=== PATIENT | female | born 1955 ===

== ENCOUNTER 2016-09-23 19:58 | Emergency (ER) | payer SELFPAY ==
[2016-09-23 20:04] VITALS: BP 139/69; PULSE 77; RESP 16; TEMP 97.9; O2SAT 100
[2016-09-23] MEDS ORDERED: Naproxen 500 MG TAB PO STA (20:49)
--- NOTE | 2016-09-23 21:00 | ED PDOC ---
HPI: General Adult Time Seen by Provider: 09/23/16 20:33 Chief Complaint (Nursing): Upper Extremity Problem/Injury Chief Complaint (Provider): Right flank pain for a few days, rash yesterday History Per: Patient History/Exam Limitations: no limitations Onset/Duration Of Symptoms: Days Have you had recent travel within the past 21 days to any of the following countries: [place], [place], [place] or [place]?: No Current Symptoms Are (Timing): Still Present Severity: Moderate Pain Scale Rating Of: 6 Location Of Discomfort (Image): 1 - Pain, rash Similar Symptoms Previously: No Additional Complaint(s): PT states she fell a few weeks ago but did not have the pain right after the fall. Denies SOB, chest pain, weakness or fever Past Medical History Reviewed: Historical Data, Nursing Documentation, Vital Signs Vital Signs: Last Vital Signs Temp 97.9 F 09/23/16 20:01 Pulse 77 09/23/16 20:01 Resp 16 09/23/16 20:01 BP 139/69 09/23/16 20:01 Pulse Ox 100 09/23/16 20:01 - Medical History PMH: No Chronic Diseases - Surgical History Surgical History: No Surg Hx - Family History Family History: States: No Known Family Hx - Living Arrangements Living Arrangements: With Family - Social History Current smoker - smoking cessation education provided: No Alcohol: None Drugs: Denies - Home Medications Home Medications: Ambulatory Orders Medication Instructions Recorded Gabapentin [Neurontin] 300 mg PO TID #30 cap 09/23/16 valACYclovir [Valtrex] 1 gm PO Q8H #21 tab 09/23/16 - Allergies Allergies/Adverse Reactions: Allergies Allergy/AdvReac Type Severity Reaction Status Date / Time No Known Allergies Allergy Verified 09/23/16 20:01 Review of Systems ROS Statement: Except As Marked, All Systems Reviewed And Found Negative Constitutional: Negative for: Fever, Chills Cardiovascular: Negative for: Chest Pain Respiratory: Negative for: Shortness of Breath Musculoskeletal: Positive for: Other (Back/flank pain) Skin: Positive for: Rash Physical Exam - Reviewed Nursing Documentation Reviewed: Yes Vital Signs Reviewed: Yes - Physical Exam Appears: Positive for: Well, Non-toxic, No Acute Distress Head Exam: Positive for: ATRAUMATIC, NORMAL INSPECTION, NORMOCEPHALIC Skin: Positive for: Warm, Rash (Vesicular erythematous rash, right T5-T6 dermatome). Negative for: Normal Color Eye Exam: Positive for: Normal appearance ENT: Positive for: Normal ENT Inspection Neck: Positive for: Normal, Painless ROM Cardiovascular/Chest: Positive for: Regular Rate, Rhythm Respiratory: Positive for: Normal Breath Sounds. Negative for: Accessory Muscle Use, Respiratory Distress Back: Positive for: Normal Inspection Extremity: Positive for: Normal ROM. Negative for: Tenderness Neurologic/Psych: Positive for: Alert, Oriented - ECG O2 Sat by Pulse Oximetry: 100 Pulse Ox Interpretation: Normal Disposition - Clinical Impression Clinical Impression: Shingles - Patient ED Disposition Is Patient to be Admitted: No Counseled Patient/Family Regarding: Diagnosis, Need For Followup, Rx Given - Disposition Disposition: Routine/Home Disposition Time: 20:58 Condition: GOOD Prescriptions: Gabapentin [Neurontin] 300 mg PO TID #30 cap valACYclovir [Valtrex] 1 gm PO Q8H #21 tab Instructions: Jossy (ED) Print Language: YORUBA
[2016-09-23] MEDS ORDERED: Naproxen 500 MG TAB PO ONE (21:07)
== END 2016-09-23 21:15 | disposition home or self-care (01) ==
LOC: H.ER 19:58
DX: B02.9 Zoster without complications (principal)

== ENCOUNTER 2016-10-17 20:12 | Emergency (ER) | payer OTHER ==
[2016-10-17 20:42] VITALS: BP 131/71; PULSE 71; RESP 20; TEMP 98.2; O2SAT 100
[2016-10-17 22:05] LABS: BASO % 0.4 % (0.0-2.0); EOS # 0.1 K/uL (0.0-0.7); EOS % 2.2 % (0.0-4.0); HEMATOCRIT 41.7 % (34.0-47.0); LYMPH # 2.2 K/uL (1.0-4.3); LYMPH % 33.5 % (20.0-40.0); MEAN CELL VOLUME 90.4 fl (81.0-99.0); MEAN CORPUSCULAR HEMOGLOBIN 30.7 pg (27.0-31.0); MEAN PLATELET VOLUME 9.2 fl (7.2-11.7); MONO # 0.7 K/uL (0.0-0.8); MONO % 10.6 % (0.0-10.0); NEUT # 3.6 K/uL (1.8-7.0); NEUT % 53.3 % (50.0-75.0); NRBC % 0.8 % (0.0-0.0); RED CELL DISTRIBUTION WIDTH 13.1 % (11.5-14.5); WHITE BLOOD COUNT 6.7 K/uL (4.8-10.8)
[2016-10-17 22:10] LABS: ALB/GLOB RATIO 1.4 (1.0-2.1); ALKALINE PHOSPHATASE 92 U/L (38-126); ALT/SGPT 34 U/L (9-52); AST/SGOT 28 U/L (14-36); BILIRUBIN,TOTAL 0.9 mg/dl (0.2-1.3); BLOOD UREA NITROGEN 18 mg/dl (7-17); CALCIUM 9.7 mg/dL (8.4-10.2); CARBON DIOXIDE 25 mmol/L (22-30); CHLORIDE 104 mmol/L (98-107); GFR AFRICAN-AMERICAN > 60; GLUCOSE,RANDOM 134 mg/dL (65-105); MAGNESIUM 1.9 MG/DL (1.6-2.3); POTASSIUM 4.5 MMOL/L (3.6-5.0); SODIUM 139 mmol/l (132-148); TOTAL PROTEIN 7.6 G/DL (6.3-8.2)
--- NOTE | 2016-10-17 22:36 | ED PDOC ---
HPI: Neurologic - General Time Seen by Provider: 10/17/16 20:45 Chief Complaint (Nursing): Abdominal Pain Chief Complaint (Provider): Weakness and back pain Source: patient Exam Limitations: no limitations - History of Present Illness Timing/Duration: other (x 2 weeks) Allergies/Adverse Reactions: Allergies No Known Allergies Allergy (Verified 09/23/16 20:01) Home Medications: Ambulatory Orders Gabapentin [Neurontin] 300 mg PO TID #30 cap 09/23/16 valACYclovir [Valtrex] 1 gm PO Q8H #21 tab 09/23/16 Ibuprofen [Motrin Tab] 600 mg PO Q8 PRN #60 tab 10/17/16 Polyethylene Glycol 3350 [Miralax] 17 gm PO DAILY PRN #1 bottle 10/17/16 traMADol [Ultram] 50 mg PO TID PRN #15 tab 10/17/16 Additional Complaint(s): Alicia is a 60 y/o female who presents to the ED complaining of weakness, ongoing for 2 weeks and worsening since onset. Associated with right back pain radiating to the right anterior shoulder and chest. 4 weeks ago she was diagnosed with shingles and completed medications for this. Rash of shingles is located at the right upper back, and that has resolved but the pain persists and seems to be getting worse. No fever or shortness of breath. She reports frequency but no dysuria. States she is drinking a lot of water. PMD: None Past Medical History Reviewed: Historical Data, Nursing Documentation, Vital Signs Vital Signs: Last Vital Signs Temp 98.2 F 10/17/16 20:39 Pulse 71 10/17/16 20:39 Resp 20 10/17/16 20:39 BP 131/71 10/17/16 20:39 Pulse Ox 100 10/17/16 20:39 - Medical History PMH: No Chronic Diseases - Surgical History Surgical History: Appendectomy - Family History Family History: States: No Known Family Hx - Social History Current smoker - smoking cessation education provided: No Alcohol: None - Home Medications Home Medications: Ambulatory Orders Medication Instructions Recorded Gabapentin [Neurontin] 300 mg PO TID #30 cap 09/23/16 valACYclovir [Valtrex] 1 gm PO Q8H #21 tab 09/23/16 Ibuprofen [Motrin Tab] 600 mg PO Q8 PRN #60 tab 10/17/16 Polyethylene Glycol 3350 [Miralax] 17 gm PO DAILY PRN #1 bottle 10/17/16 traMADol [Ultram] 50 mg PO TID PRN #15 tab 10/17/16 - Allergies Allergies/Adverse Reactions: Allergies Allergy/AdvReac Type Severity Reaction Status Date / Time No Known Allergies Allergy Verified 09/23/16 20:01 Review of Systems ROS Statement: Except As Marked, All Systems Reviewed And Found Negative (as per HPI) Constitutional: Negative for: Fever Respiratory: Negative for: Shortness of Breath Genitourinary Female: Positive for: Frequency. Negative for: Dysuria Musculoskeletal: Positive for: Back Pain (right back pain radiating to the right anterior shoulder and chest) Neurological: Positive for: Weakness Physical Exam - Reviewed Nursing Documentation Reviewed: Yes Vital Signs Reviewed: Yes - Physical Exam Appears: Positive for: Well, No Acute Distress Head Exam: Positive for: ATRAUMATIC, NORMOCEPHALIC Skin: Positive for: Warm, Dry, Rash (flat dark brown pigmentation on RIGHT mid back in a band consitent with a dermatome, appears like healed zoster rash.) Eye Exam: Positive for: EOMI, PERRL ENT: Negative for: Pharyngeal Erythema, Tonsillar Exudate Neck: Positive for: Painless ROM, Supple Cardiovascular/Chest: Positive for: Regular Rate, Rhythm, Other (Tenderness to palpation RIGHT upper chest wall). Negative for: Murmur Respiratory: Positive for: Normal Breath Sounds. Negative for: Respiratory Distress Gastrointestinal/Abdominal: Positive for: Soft. Negative for: Tenderness, Mass , Distended, Guarding Back: Positive for: Normal Inspection. Negative for: Decreased ROM Extremity: Positive for: Normal ROM. Negative for: Deformity Lymphatic: Negative for: Adenopathy Neurologic/Psych: Positive for: Alert. Negative for: Motor/Sensory Deficits - Laboratory Results Result Diagrams: 10/17/16 21:25 10/17/16 21:25 - ECG O2 Sat by Pulse Oximetry: 100 (RA) Pulse Ox Interpretation: Normal Medical Decision Making Medical Decision Making: Initial Impression: Back pain and weakness Differentials include but are not limited to: dehydration, electrolyte abnormality, viral syndrome, postherpetic neuralgia. Time: 21:04 Initial Plan: --Labs ordered --Pending X-Ray Abdomen w/ Chest --Started on IV fluids Time: 22:10 --Toradol 15 mg IV --Tylenol 975 mg PO No emergently significant lab abnormalities Abdomen/chest xray demonstrates stool. NSBGP. No dilated bowel Scribe Attestation: Documented by Madeleine Colunga, acting as a scribe for Imani Joy MD Provider Scribe Attestation: All medical record entries made by the Scribe were at my direction and personally dictated by me. I have reviewed the chart and agree that the record accurately reflects my personal performance of the history, physical exam, medical decision making, and the department course for this patient. I have also personally directed, reviewed, and agree with the discharge instructions and disposition. Disposition - Clinical Impression Clinical Impression: Post herpetic neuralgia, Constipation Counseled Patient/Family Regarding: Studies Performed, Diagnosis, Need For Followup, Rx Given - Disposition Referrals: [facility] [Outside] [facility] [Outside] - 10/19/16 ([facility] TOOTIE DIONICIO POR ESTA SEMANA) Disposition: Routine/Home Disposition Time: 22:30 Condition: GOOD Additional Instructions: Neuralgia postherptica Por el personal de [facility] La neuralgia postherptica ([id number] no[facility] es tootie complicacin del herpes zoster, causada por el virus de la varicela (herpes zoster). La neuralgia postherptica afecta las fibras nerviosas y la piel, causando dolor ardiente que dura mucho tiempo despus de la erupcin y las ampollas de las culebrillas desaparecen. El riesgo de neuralgia postherptica aumenta con la edad, afectando principalmente a personas mayores de 60 aos. No hay adilene, jose los tratamientos pueden aliviar los sntomas. Para la mayora de las personas, la neuralgia postherptica mejora con el tiempo. Los signos y sntomas de la neuralgia postherptica se limitan generalmente al brittney de merida piel donde el estallido de la culebrilla ocurri flora - lo ms com nmente posible en tootie venda alrededor de merida tronco, generalmente en un lado de merida cuerpo. Sin embargo, la neuralgia postherptica tambin es comn en personas cuyas herpes zster se produjeron en la linda. Los signos y sntomas pueden incluir: Dolor que dura 3 meses o ms despus de que la erupcin cutnea se haya curado. El dolor asociado se alberts descrito roberto ardor, mario y jabbing, o profundo y dolor. Sensibilidad al tacto ligero. Las personas con la condicin a menudo no pueden soportar incluso el toque de ropa en la piel afectada (alodinia). Prurito y entumecimiento. Menos comnmente, la neuralgia posherptica puede producir sensacin de picazn o entumecimiento. Cundo consultar a un mdico Consulte a un mdico al primer signo de herpes zster. A menudo, el dolor comienza antes de notar tootie erupcin. El riesgo de desarrollar neuralgia postherptica disminuye si empieza a sheyla medicamentos antivirales dentro de las 72 horas posteriores al desarrollo de la erupcin cutnea. Tootie vez que usted alberts tenido varicela, el virus permanece en merida cuerpo para el yahir de merida rupa. A medida que envejece o si merida sistema inmunolgico se suprime , roberto los medicamentos o la quimioterapia, el virus puede reactivarse, causando herpes zster. La neuralgia postherptica ocurre si las fibras nerviosas se daan ilsa un brote de herpes. Las fibras daadas no pueden enviar mensajes de merida piel a merida cerebro roberto lo hacen normalmente. En merida lugar, los mensajes se vuelven confusos y exagerados, causando dolor crnico, a menudo insoportable que puede durar meses - o incluso aos. Cuando usted tiene herpes zster, usted podra estar en mayor riesgo de desarrollar neuralgia postherptica roberto resultado de: Aos. Tienes ms de 50 aos. Severidad de las ripias. Usted tuvo un sarpullido andrews y dolor andrews. Otras enfermedades. Usted tiene tootie enfermedad crnica, roberto la diabetes. Usted chuy herpes en merida linda o torso. Dependiendo de cunto dure la neuralgia postherptica y de lo doloroso que es, las personas con la condicin pueden desarrollar: Depresin Fatiga Dificultad para dormir Falta de apetito Dificultad para concentrarse Puede empezar por gale a merida mdico de cabecera. l o jeny puede referir a un especialista en nervios (neurlogo) o un mdico que se especializa en el tratamiento del dolor crnico. Aqu hay informacin que le ayudar a prepararse para merida dionicio. Lo que puedes hacer Cuando matthieu la dionicio, pregunte si hay algo que necesita hacer por adelantado, roberto ayuno antes de tootie prueba especfica. Haz tootie lista de: Love sntomas, incluyendo cualquiera que parezca no relacionado con el motivo de merida dionicio Informacin personal clave, incluyendo estrs importante, cambios recientes en la rupa y antecedentes mdicos familiares Todos los medicamentos, vitaminas u otros suplementos que tome, incluidas las dosis Preguntas para merida mdico Lleve a un familiar o amigo a lo laura, si es posible, para ayudarle a recordar la informacin que le noé. Para la neuralgia postherptica, algunas preguntas bsicas a hacer a merida mdico incluyen: Cul es la causa probable de mis sntomas? Qu ms podra causar mis sntomas? Qu pruebas necesito? Es probable que mi condicin sea temporal o crnica? Cul es el mejor curso de accin? Cules son las alternativas al enfoque primario que sugiere? Tengo otras condiciones de sky. [employer] puedo manejarlos mejor juntos? Hay restricciones que alexia seguir? Alexia gale a un especialista? Hay folletos u otro material impreso que pueda tener? Qu sitios web recomienda? No dude en hacer otras preguntas. Qu esperar de merida mdico Es probable que merida mdico le matthieu varias preguntas, tales roberto: Cundo comenzaron love sntomas? Love sntomas canas sido continuos o ocasionales? Cun severos son love sntomas? Alberts tenido varicela? Cuando? Qu, si algo, parece mejorar love sntomas? Qu, si algo, parece empeorar love sntomas? Merida mdico examinar merida piel, posiblemente tocndola en lugares para determinar los bordes del brittney afectada. En la mayora de los casos, no son necesarias pruebas. Ningn tratamiento linda beverly la neuralgia postherptica en todas las personas. En muchos casos, se necesita tootie combinacin de tratamientos para reducir el dolor. Prescriptions: Ibuprofen [Motrin Tab] 600 mg PO Q8 PRN #60 tab PRN Reason: Pain, Moderate (4-7) Polyethylene Glycol 3350 [Miralax] 17 gm PO DAILY PRN #1 bottle PRN Reason: Constipation traMADol [Ultram] 50 mg PO TID PRN #15 tab PRN Reason: SEVERE PAIN ONLY Instructions: Constipation (ED) Print Language: NEPALI
--- NOTE | 2016-10-18 11:03 | RAD ---
Chest and abdominal series dated 10/16/2016. History: Chest pain. Constipation. Frontal view of the chest and supine/erect views of the abdomen performed. No prior study available for comparison. Findings: Heart size normal. Lung spencer clear without focal consolidation or effusion. No evidence of pneumothorax. Minor multilevel degenerative spondylosis of the thoracic spine. Mild degenerative changes both shoulder girdles. No free air seen under the diaphragmatic surfaces. There is a moderate amount of stool throughout the colon consistent with this patient's history of constipation. No evidence of acute mechanical bowel obstruction. Small elliptical shaped calcific like density overlying the left iliac wing could represent calcified injection granuloma left buttock or possibly bone island or osteoma. Apparent graft slight spurring along the superolateral margins of the acetabular roofs. Impression: No evidence of acute cardiopulmonary disease. Findings consistent with constipation. No evidence of free intraperitoneal air or obstruction.
--- NOTE | 2016-10-22 18:44 | CARD ---
APPROVED REPORT EKG Measurement Heart [id number] <Conclusion> Normal sinus rhythm Normal ECG
== END 2016-10-18 06:46 | disposition home or self-care (01) ==
LOC: H.ER 20:12
DX: K59.00 Constipation, unspecified (principal); M54.9 Dorsalgia, unspecified; R53.1 Weakness
CPT/HCPCS: 74022; 80053; 82533; 82948; 83735; 84100; 84443; 85025; 93005; 96374; 99282; J1885